=== PATIENT | female | born 1985 | race Caucasian/White ===

== ENCOUNTER 2018-07-22 21:18 | Emergency (ER) | payer MEDICAID, OTHER ==
[~2018-07-22] VITALS: Ht 165.1 cm; Wt 117.9 kg
[~2018-07-22 21:18] MED LIST: IBUPROFEN600 MG ORAL; TRAMADOL HCL50 MG ORAL
[2018-07-22 21:25] VITALS: BP 155/97
--- NOTE | 2018-07-22 21:25 | NUR ---
ED Nurse Note: Patient walk in c/o back pain shooting down her left leg for 3x days. Patient reports 9/10 pain. pt stated hse has history of cyatica and taking flexiril and ibuprofen. seen by tiffanie. will continuet monitor.
[2018-07-22] MEDS ORDERED: BUSPAR10 MG ORAL (21:27)
[2018-07-22] MEDS ORDERED: TRAZODONE HCL150 MG ORAL (21:27)
[2018-07-22] MEDS ORDERED: NEURONTIN300 MG ORAL (21:27)
[2018-07-22] MEDS ORDERED: SEROQUEL400 MG ORAL (21:27)
[2018-07-22] MEDS ORDERED: ROBAXIN-750750 MG PO (21:51)
[2018-07-22] MEDS ORDERED: Methocarbamol 500mg tab ORAL ONE (22:00)
[2018-07-22 22:09] LABS: APPEARANCE,URINE CLEAR; BILIRUBIN, URINE NEGATIVE (NEGATIVE); COLOR,URINE PALE YELLOW; GLUCOSE, URINE (UA) NEGATIVE (NEGATIVE); KETONES,URINE NEGATIVE (NEGATIVE); LEUKOCYTE ESTERASE ,URINE 1+ (NEGATIVE); NITRITE,URINE NEGATIVE (NEGATIVE); PH,URINE 5 (4.5-8.0); PROTEIN,URINE NEGATIVE (NEGATIVE); UROBILINOGEN,URINE NORMAL MG/DL (0.0-1.0)
[2018-07-22 22:14] VITALS: BP 155/97
--- NOTE | 2018-07-22 22:14 | NUR ---
ED Nurse Note: pt was cleared for discharge by tiffanie. prescription and discharge instruction explained and pt able to verbalize understanding. id band removed. pt able to walk with steady gait. pt left the ed with all belongings.
--- NOTE | 2018-07-22 22:16 | Emergency Room Report ---
History of Present Illness General Chief Complaint: Back Pain-No Injury Source: Patient Present Illness HPI Patient is a 32-year-old female brought in by private vehicle for increased low back pain. Patient reports having prior history of chronic back pain. She states that she had been having increased numbness to the right lower extremity on the lateral aspect. This has been a chronic problem. She reports having some abnormal spinal curvature. Patient denies any recent trauma. She is currently taking ibuprofen as well as Flexeril. Patient additionally been taking gabapentin and had previously been on Robaxin but had recently had her dosage reduced. She denies any fever. She denies being . She denies any abdominal pain. Allergies: Coded Allergies: HALOPERIDOL (Verified Allergy, Unknown, 08/07/15) LORAZEPAM (Verified Allergy, Unknown, 08/07/15) CARROT (Unverified Adverse Reaction, Severe, 11/30/15) FISH CONTAINING PRODUCTS (Unverified Adverse Reaction, Severe, 11/30/15) Pork (Unverified Adverse Reaction, Severe, 11/30/15) Patient History Past Medical History: see triage record Last Menstrual Period: 06/19/2018 Now: No : 1 Para: 1 Reviewed Nursing Documentation: PMH: Agreed; PSxH: Agreed Nursing Documentation-PMH Past Medical History: No History, Except For Hx Hypertension: Yes Hx Asthma: Yes Review of Systems All Other Systems: negative except mentioned in HPI Physical Exam Vital Signs Date Time Temp Pulse Resp B/P (MAP) Pulse Ox O2 Delivery O2 Flow Rate FiO2 07/22/18 21:22 98.4 79 16 155/97 97 Room Air General Appearance: well appearing, no apparent distress, alert, GCS 15, obese Head: normocephalic, atraumatic ENT: hearing grossly normal, normal voice Neck: full range of motion, supple Respiratory: no respiratory distress, speaking full sentences Cardiovascular #1: normal inspection, regular rate, rhythm Gastrointestinal: normal inspection, non tender, soft Musculoskeletal: normal inspection, back normal, no calf tenderness Neurologic: normal inspection, alert, oriented x3, responsive, software developer III-XII nml as tested, motor strength/tone normal, normal gait Psychiatric: mood/affect normal Skin: no rash Medical Decision Making Diagnostic Impression: Primary Impression: Sciatica ER Course Patient presented for back pain. Differential diagnosis included but was not limited to herniated disc, cauda equina syndrome, abdominal aortic aneurysm, perforated ulcer, spinal epidural abscess, spinal stenosis, lumbar fracture, metastatic lesion, pyelonephritis. Patient has a benign exam and does not appear to require any further imaging or laboratory testing at this time. patient was noted to have prior history of chronic low back pain. Patient urine test was negative. She does not appear to have any evidence of infection at this time. Patient was noted to have some symptoms consistent with a sciatica from lumbar disc disease. Patient does not appear to have any evidence of urinary retention nor limitations of her mobility. Patient was noted to have ability to straighten out her legs completely as well as to ambulate without assistance. Patient was advised outpatient physical therapy. She was given prescription for Robaxin. The patient is advised to follow up with her doctor in 1-2 days. Patient is advised to return if any worsening condition or if any changes in status that are concerning. 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 Labs Test 07/22/18 21:50 Urine Color Pale yellow Urine Appearance Clear Urine pH 5 (4.5-8.0) Urine Specific [place] 1.020 (1.005-1.035) Urine Protein Negative (NEGATIVE) Urine Glucose (UA) Negative (NEGATIVE) Urine Ketones Negative (NEGATIVE) Urine Blood Negative (NEGATIVE) Urine Nitrite Negative (NEGATIVE) Urine Bilirubin Negative (NEGATIVE) Urine Urobilinogen Normal MG/DL (0.0-1.0) Urine Leukocyte Esterase 1+ (NEGATIVE) Urine HCG, Qualitative Negative (NEGATIVE) Last Vital Signs Date Time Temp Pulse Resp B/P (MAP) Pulse Ox O2 Delivery O2 Flow Rate FiO2 07/22/18 21:25 98.4 78 16 155/97 97 Room Air Status: improved Disposition: HOME, SELF-CARE Condition: Stable Scripts Methocarbamol* (ROBAXIN-750*) 750 Mg Tablet 750 MG PO BID, #14 TAB 0 Refills Prov: Cy Dao MD 07/22/18 Patient Instructions: Low Back Strain With Rehab[facility] Cy Dao MD Jul 22, 2018 22:16
[2018-07-22] MEDS ORDERED: Ketorolac 60mg Inj IM ONE (22:30)
== END 2018-07-22 22:14 | disposition home or self-care (01) ==
LOC: EMR 21:49
DX: M54.40 Lumbago with sciatica, unspecified side (principal); I10 Essential (primary) hypertension; J45.909 Unspecified asthma, uncomplicated; Z91.018 Allergy to other foods; Z88.8 Allergy status to other drugs, medicaments and biological substances
CPT/HCPCS: 81003; 81025; 96372; 99283